=== PATIENT | male | born 1940 | race Caucasian/White ===

== ENCOUNTER 2022-07-07 15:50 | Inpatient (IN) | payer BC, OTHER ==
[~2022-07-07] VITALS: Ht 177.8 cm; Wt 93.4 kg
[~2022-07-07 15:50] MED LIST: ATEN-167 PO; LOVA20TA2 PO; RANI150T8 PO; TERA10CA PO
[2022-07-07 16:00] VITALS: BP_SYST 78
--- NOTE | 2022-07-07 17:00 | NUR ---
Placed in room 03 . Placed on awning spreader, blood pressure machine and pulse oximeter. To gown for exam. Side rails up.
--- NOTE | 2022-07-07 17:05 | NUR ---
PATIENT BROUGHT IN COMPLAINING OF DIARRHEA X 1 DAY. PATIENT REPORT THAT HE HAD 4 EPISODES OF BLOODY DIARRHEA WITH MILD DIZZINESS. LOWER ABDOMINAL CRAMPING NON RADIATING.
--- NOTE | 2022-07-07 17:08 | NUR ---
ER at bedside examining patient.
--- NOTE | 2022-07-07 17:13 | NUR ---
# 20 gauge angiocath placed to RAC. Use of asceptic technique. Opsite placed over site. Blood return noted. Blood for lab drawn from site. Flushed with 10 cc of normal saline. No evidence of infiltration noted. Patient tolerated well.
[2022-07-07 17:34] LABS: BASOPHILS % (AUTO) 0.2 % (0.0-2.0); EOSINOPHILS % (AUTO) 0.2 % (0.0-4.0); HEMATOCRIT 43.2 % (36-54); HEMOGLOBIN 14.9 g/dL (14.0-18.0); LYMPHOCYTES # (AUTO) 0.4 K/uL (1.0-5.5); LYMPHOCYTES % (AUTO) 3.9 % (20.5-51.5); MEAN CORPUSCULAR HEMOGLOBIN 32 pg (27-31); MEAN CORPUSCULAR HGB CONC 35 % (32-36); MEAN CORPUSCULAR VOLUME 93 fL (79.0-98.0); MONOCYTES # (AUTO) 0.4 K/uL (0.0-1.0); MONOCYTES % (AUTO) 3.9 % (1.7-9.3); NEUTROPHILS # (AUTO) 10.5 K/uL (1.8-7.7); NEUTROPHILS % (AUTO) 91.8 % (40.0-70.0); PLATELET COUNT (AUTO) 224 K/uL (130-430); RED BLOOD CELL COUNT(AUTO) 4.64 MIL/uL (4.2-6.2); RED CELL DISTRIBUTION WIDTH 13.5 % (9.0-15.0); WHITE BLOOD COUNT (AUTO) 11.5 K/uL (4.8-10.8)
[2022-07-07 17:49] LABS: ALANINE AMINOTRANSFERASE 35 U/L (12-78); ALBUMIN 3.8 g/dL (3.4-4.8); ANION GAP 12 (5-15); ASPARTATE AMINOTRANSFERASE 23 U/L (10-37); CALCIUM 8.8 mg/dL (8.4-11.0); CHLORIDE 100 mmol/L (98-107); CREATININE 1.19 mg/dL (0.55-1.30); GLUCOSE 164 mg/dL (70-99); LIPASE 130 U/L (73-393); TOTAL BILIRUBIN 0.7 mg/dL (0.0-1.0); UREA NITROGEN, BLOOD 13 mg/dL (8-21)
[2022-07-07 18:03] LABS: PROTHROMBIN TIME 10.6 SECS (9.5-12.5)
--- NOTE | 2022-07-07 18:16 | NUR ---
ER Dr. GRADY at bedside examining patient.
[2022-07-07] MEDS ORDERED: NACL 0.9% 2,000 ML IV ONE (18:30)
[2022-07-07] MEDS ORDERED: cefTRIAXone 1 GM in D5W 50 ML IV ONE (18:30)
[2022-07-07] MEDS ORDERED: cefTRIAXone 1 GM VIAL ONE (18:40)
[2022-07-07] MEDS ORDERED: metroNIDAZOLE 500 mg/NS 100 ML IV ONE (19:15)
[2022-07-07] MEDS ORDERED: MORPHINE 4 MG INJ. 4 MG/ML VIAL IVP ONE (19:30)
[2022-07-07] MEDS ORDERED: SEMA1PEN3 (19:57)
[2022-07-07] MEDS ORDERED: ASPI-1155 PO (19:57)
[2022-07-07] MEDS ORDERED: FAMO-132 PO (19:57)
[2022-07-07] MEDS ORDERED: FINA5TAB3 PO (19:57)
[2022-07-07] MEDS ORDERED: PIOG15TA8 PO (19:57)
[2022-07-07] MEDS ORDERED: ASCO500T20 PO (19:57)
[2022-07-07] MEDS ORDERED: L.RH1CAP PO (19:57)
[2022-07-07] MEDS ORDERED: CYAN50009 PO (19:57)
[2022-07-07] MEDS ORDERED: LISI10TA29 PO (19:57)
[2022-07-07] MEDS ORDERED: GLIM4TAB PO (19:57)
[2022-07-07] MEDS ORDERED: VITD2000 PO (19:57)
--- NOTE | 2022-07-07 19:57 | NUR ---
Admit bed requested Patient will be admitted to care of . Admitted to TELE unit. Diagnosis COLITIS Inpatient (Yes or No) YES Observation (Yes or No) NO Orientation concerns or request close to nursing station (Yes or No) NO Covid Status PENDING On vent or bipap NO Isolation requirements NO Needs a sitter NO From Home (Yes or if No enter name of facility) YES Requires Dialysis (Yes or No) NO Med Rec Completed (Yes of No) YES
--- NOTE | 2022-07-07 19:57 | NUR ---
Medication reconciliation completed with information provided by family member at the bedside. Any prior medication reconciliation on file was reviewed and corrected.
--- NOTE | 2022-07-07 20:31 | NUR ---
Patient resting quietly. No acute distress noted. Vital signs within normal range.
[2022-07-07] MEDS ORDERED: NS 100 ML IV ONE (21:00)
--- NOTE | 2022-07-07 21:03 | NUR ---
3RD LACTIC ORDERED DUE TO ELEVATED LACTIC ACID OF 2.9
--- NOTE | 2022-07-07 21:06 | NUR ---
MD MADE AWARE THAT PATIENT HAS NOT URINATED. NO NEW ORDERS AT THIS TIME.
[2022-07-07] MEDS ORDERED: FAMOTIDINE 20 MG TABLET PO ONE (21:15)
--- NOTE | 2022-07-07 21:21 | NUR ---
Transfer to TELEMETRY via ACLS protocol. Licensed nurse present. IV present no signs or symptoms of infiltration.
[2022-07-07 22:00] VITALS: BP_SYST 152
[2022-07-07 23:14] VITALS: BP_SYST 152
[2022-07-07] MEDS: D5/0.45 NS 1,000 ML IV SCH (23:48)
[2022-07-08] MEDS: PIPERACILLIN/TAZO 3.375 GM in NS 50 ML IV SCH ×4 (00:03→22:45)
[2022-07-08] MEDS ORDERED: ONDANSETRON HCL 4 MG/2 ML VIAL IVP PRN (00:30)
--- NOTE | 2022-07-08 00:30 | NUR ---
DR. BROWN Spoke with Dr. Brown regarding new admission. Informed him of patient's current report of cramping/upset stomach. Received order for Zofran PRN, Protonix daily first dose now, and for stool cultures.
[2022-07-08] MEDS: PANTOPRAZOLE SODIUM 40 MG/VIAL (PROTONIX) IVP SCH ×2 (00:46→22:45)
[2022-07-08 02:02] LABS: BILIRUBIN,URINE NEGATIVE (NEGATIVE); BLOOD, URINE 2+ (NEGATIVE); CLARITY/URINE SL CLOUDY (CLEAR); COLOR,URINE YELLOW (YELLOW); GLUCOSE,URINE NEGATIVE (NEGATIVE); KETONES,URINE 1+ (NEGATIVE); LEUKOCYTE ESTERASE ,URINE 1+ (NEGATIVE); NITRITE, URINE NEGATIVE (NEGATIVE); PH,URINE 5.5 (5.0-8.0); PROTEIN URINE NEGATIVE (NEGATIVE); UROBILINOGEN,URINE 0.2 (0.2-1.0)
[2022-07-08 02:05] LABS: WBC,URINE 50-80 /HPF (0-3)
[2022-07-08 02:06] LABS: BACTERIA,URINE FEW /HPF (None Seen); MUCUS,URINE 2+ /LPF (None Seen)
--- NOTE | 2022-07-08 02:31 | NUR ---
ADMISSION NOTE Received patient from ER via stretcher. Patient admitted with diagnosis of left side colitis . Patient is awake, alert, oriented X 4. Patient oriented to hospital room, call light, toileting, pain management and safety-teach back done. Personal belongings checked and Belongings List documented. Call light within reach.
[2022-07-08] MEDS: D5/0.45 NS 1,000 ML IV SCH ×2 (05:45→11:15)
--- NOTE | 2022-07-08 06:48 | NUR ---
CLOSING NOTES PATIENT IS IN BED. AXO 4 WITH SOME ABDOMINAL CRAMPING. NO S/S OR DISTRESS OR PAIN. SAFETY CHECKS ARE DONE AND CALL LIGHT WITH IN REACH.
--- NOTE | 2022-07-08 07:30 | NUR ---
Patient stated he had 4-5 episodes of diarrhea at home but has not had a bowel movement since he arrived at the hospital. Stool sample still needs to be collected. Patient also stated he has an advance directive at home and wants to be DNR, and that his can bring a copy of his advance directive. Care endorsed to oncoming nurse.
[2022-07-08 08:00] VITALS: BP_SYST 147
--- NOTE | 2022-07-08 08:00 | NUR ---
Start of shift. Pt coming out of restroom, just had bloody stool, specimen collected and sent to lab. Pt ambulates in room with steady to restroom. IV in RAC intact and patent infusing IVF's well. Tele unit attached and intact. No SOB/resp distress or chest pain/discomfort noted at this time. Call light within reach.
--- NOTE | 2022-07-08 09:40 | NUR ---
Note Dr June on the floor to assess pt and check labs/tests. MD informed that pt's medications need to be reconciled.
[2022-07-08 12:00] VITALS: BP_SYST 155
[2022-07-08] MEDS: metroNIDAZOLE 500 mg/NS 100 ML IV SCH ×2 (14:27→23:29)
[2022-07-08 16:00] VITALS: BP_SYST 153
--- NOTE | 2022-07-08 18:55 | NUR ---
END OF SHIFT Pt resting in bed. Pt does not like his Clear liquids diet. Pt encouraged to drink the Ensure and may be juice/chicken broth. Pt states to leave dinner tray at bedside table and he will try and eat/drink something. IV in RAC intact and patent infusing IVF's well. Bed in low position and bed alarm on. Side rails raised. Pt maintained with safety precautions all shift. Call light within reach. No more bloody bowel movements noted on shift. (Only bowel movement at 08am). Tele unit attached and intact all shift.
--- NOTE | 2022-07-08 19:45 | NUR ---
LAB CALLED FOR POSITIVE C DIFF IN STOOL. ISOLATION PRECAUTIONS ARE IN PLACE. PAGED DR. BROWN.
[2022-07-08 20:20] VITALS: BP_SYST 149
--- NOTE | 2022-07-08 20:20 | NUR ---
INFORMED DR. BROWN OF POSITIVE C DIFF. ORDERS RECEIVED.
[2022-07-08] MEDS: VANCOMYCIN HCL ORAL SOLUTION 125 MG/5 ML, 150 ML PO SCH (22:37)
--- NOTE | 2022-07-08 23:34 | NUR ---
CONSULTATION PAGED/CALLED Reason for Consultation: C DIFF Person Who was Notified: DEVIN Consulting Physician: AMPARO RÍOS MD Auto Seat Cover Installer Specialty: GI Ordering Physician: JULIO BROWN MD
[2022-07-09 00:11] VITALS: BP_SYST 158
[2022-07-09] MEDS: D5/0.45 NS 1,000 ML IV SCH ×3 (00:54→21:04)
[2022-07-09] MEDS: PIPERACILLIN/TAZO 3.375 GM in NS 50 ML IV SCH ×3 (05:53→21:07)
[2022-07-09] MEDS: metroNIDAZOLE 500 mg/NS 100 ML IV SCH (06:29)
[2022-07-09 06:34] LABS: ANION GAP 7 (5-15); CALCIUM 8.2 mg/dL (8.4-11.0); CHLORIDE 104 mmol/L (98-107); CREATININE 0.83 mg/dL (0.55-1.30); GLUCOSE 174 mg/dL (70-99); UREA NITROGEN, BLOOD 4 mg/dL (8-21)
--- NOTE | 2022-07-09 06:49 | NUR ---
Patient is lying in bed. AXO 4. Fluids running. Last BM was 07/08/2022 AM. No s/s or distress or pain at this time. All needs were met. Safety checks done and call light with in reach.
[2022-07-09 07:07] LABS: BASOPHILS % (AUTO) 0.4 % (0.0-2.0); EOSINOPHILS # (AUTO) 0.2 K/uL (0.0-0.4); EOSINOPHILS % (AUTO) 3.3 % (0.0-4.0); HEMATOCRIT 37.7 % (36-54); HEMOGLOBIN 12.9 g/dL (14.0-18.0); LYMPHOCYTES # (AUTO) 0.7 K/uL (1.0-5.5); LYMPHOCYTES % (AUTO) 9.7 % (20.5-51.5); MEAN CORPUSCULAR HEMOGLOBIN 32 pg (27-31); MEAN CORPUSCULAR HGB CONC 34 % (32-36); MEAN CORPUSCULAR VOLUME 94 fL (79.0-98.0); MONOCYTES # (AUTO) 0.5 K/uL (0.0-1.0); MONOCYTES % (AUTO) 6.8 % (1.7-9.3); NEUTROPHILS # (AUTO) 5.4 K/uL (1.8-7.7); NEUTROPHILS % (AUTO) 79.8 % (40.0-70.0); PLATELET COUNT (AUTO) 190 K/uL (130-430); RED BLOOD CELL COUNT(AUTO) 4.03 MIL/uL (4.2-6.2); RED CELL DISTRIBUTION WIDTH 13.3 % (9.0-15.0); WHITE BLOOD COUNT (AUTO) 6.7 K/uL (4.8-10.8)
[2022-07-09 08:05] VITALS: BP_SYST 155
[2022-07-09] MEDS: VANCOMYCIN HCL ORAL SOLUTION 125 MG/5 ML, 150 ML PO SCH ×4 (10:14→21:00)
[2022-07-09 14:05] VITALS: BP_SYST 142
--- NOTE | 2022-07-09 15:00 | NUR ---
Received report to take over assignment from DENG Mendes. Greeted Patient & explained change in assignment for remainder of shift. Patient resting comfortably in bed, no c/o pain. No s/s of acute distress noted. Patient in isolation precautions for C-diff & had some questions regarding isolation & reasons for such. Answered Patient questions & provided educations regarding C-diff spores & how this differs from other types of pathogens, highlighting importance of handwashing & bleach for shoes. Also provided information on importance of always completing courses of antibiotics as ordered, even if symptoms have resolved. Patient was thankful for the information.
[2022-07-09 16:00] VITALS: BP_SYST 136
[2022-07-09] MEDS: GLIMEPIRIDE 2 MG TABLET PO SCH (17:12)
--- NOTE | 2022-07-09 17:30 | NUR ---
Administered 1700 meds, as ordered. Patient tolerated well. Patient is curious why he is not taking his home medications while in the hospital. Nurse suggested he can discuss this and any other concerns he may have with his doctor during rounding in the morning. Patient denies pain. Bed in low, locked position. Call light & personal items within reach.
[2022-07-09 20:12] VITALS: BP_SYST 150
[2022-07-09] MEDS: FAMOTIDINE 20 MG TABLET PO SCH (20:59)
[2022-07-09] MEDS: PANTOPRAZOLE SODIUM 40 MG/VIAL (PROTONIX) IVP SCH (20:59)
--- NOTE | 2022-07-09 23:20 | NUR ---
pt resting in bed, no distress noted at this time
[2022-07-10 00:12] VITALS: BP_SYST 168
[2022-07-10 05:50] VITALS: BP_SYST 164
[2022-07-10] MEDS: PIPERACILLIN/TAZO 3.375 GM in NS 50 ML IV SCH ×3 (05:56→20:56)
[2022-07-10] MEDS: GLIMEPIRIDE 2 MG TABLET PO SCH ×2 (06:48→18:36)
[2022-07-10] MEDS: LISINOPRIL 10 MG TABLET (PRINIVIL) PO SCH (06:49)
--- NOTE | 2022-07-10 07:30 | NUR ---
rn opening note Report was endorsed by night nurse. patient is awake and alert laying in bed. no signs of any distress, breathing is equal and non labored. patient has all safety precautions in place. educated to use call light for assistance. call light is with him.
[2022-07-10 08:03] VITALS: BP_SYST 156
[2022-07-10] MEDS: ASPIRIN 81 MG TAB.CHEW PO SCH (09:00)
[2022-07-10] MEDS: ATENOLOL 50 MG TABLET (TENORMIN) PO SCH (09:19)
[2022-07-10] MEDS: CHOLECALCIFEROL (VITAMIN D3) 2,000 UNIT TABLET PO SCH (09:19)
[2022-07-10] MEDS: FINASTERIDE 5 MG TABLET (PROSCAR) PO SCH (09:20)
[2022-07-10] MEDS: TERAZOSIN HCL 5 MG CAPSULE (HYTRIN) PO SCH (09:21)
[2022-07-10] MEDS: ASCORBIC ACID 500 MG TABLET PO SCH (09:22)
[2022-07-10] MEDS: FAMOTIDINE 20 MG TABLET PO SCH ×2 (09:23→20:56)
[2022-07-10] MEDS: ATORVASTATIN 10 MG TABLET PO SCH (09:23)
[2022-07-10] MEDS: PIOGLITAZONE HCL 15 MG TABLET PO SCH (09:24)
[2022-07-10] MEDS: VANCOMYCIN HCL ORAL SOLUTION 125 MG/5 ML, 150 ML PO SCH ×4 (09:32→20:56)
--- NOTE | 2022-07-10 09:37 | NUR ---
medication patients scheduled medication given per order. Addendum: 07/11/22 at 0716 by Jenny Coyne RN patient is awake and alert no signs of any distress, breathing is equal and non labored. educated to use call light for assistance , call light is with . Patient states he is having loose bowel movements with no blood but has a form of mash potatoes. no other needs at this time.
[2022-07-10 11:32] VITALS: BP_SYST 135
--- NOTE | 2022-07-10 12:34 | NUR ---
CONSULTATION: REASON FOR CONSULT: C-DIFF CONSULTING PHYSICIAN: Aron AUGUSTIN ORDERED BY: KEVIN SPOKE WITH BHARGAVI FROM EXCHANGE [phone]
--- NOTE | 2022-07-10 15:03 | NUR ---
medication patients scheduled medication given per order.patient is awake and alert sitting in bed.No other needs at this time.educated to use call light for assistance. call light is with him.
[2022-07-10 17:01] VITALS: BP_SYST 136
--- NOTE | 2022-07-10 18:38 | NUR ---
medication /rn closing note patient scheduled medication given per order.patient is awake and alert no signs of any distress. breathing is equal and non labored.patient educated to use call light for assistance call light is with him. patient has no other needs at this time.
[2022-07-10 19:55] VITALS: BP_SYST 150
--- NOTE | 2022-07-10 19:55 | NUR ---
PM ASSESSMENT; -Patient is awake, alert, oriented X4 . Patient oriented to hospital room, call light, toileting, pain management and safety-teach back done. Maintains c-diff isolation in place. Pt denies any chest pain,pain,sob,or any acute distress. Discussed poc, all safety measures, pt verbalized understanding. Fall precaution in place. Side rails x2. Call light within reach. Cont to monitor pt.
[2022-07-10] MEDS: PANTOPRAZOLE SODIUM 40 MG/VIAL (PROTONIX) IVP SCH (20:56)
--- NOTE | 2022-07-11 00:11 | NUR ---
ROUNDS; -Pt is resting in bed comfortably. No s/s any acute distress noted. Maintains contact isolation. All side rails padded. Side rails x2. Call light within reach. Cont to monitor p
[2022-07-11 00:34] VITALS: BP_SYST 143
--- NOTE | 2022-07-11 04:40 | NUR ---
ROUNDS; -Pt is asleep. No s/s any acute distress noted. Maintains contact isolation. Side rails x2. Call light within reach. Cont to monitor p
[2022-07-11] MEDS: PIPERACILLIN/TAZO 3.375 GM in NS 50 ML IV SCH (05:40)
[2022-07-11] MEDS: GLIMEPIRIDE 2 MG TABLET PO SCH (06:22)
--- NOTE | 2022-07-11 06:46 | NUR ---
CLOSING NOTES; -Pt is resting in bed comfortably. Pt stated,"I had one time bowel movt and looked like oatmeal." Pt denies any pain,sob,or any acute distress. All safety measures in place. Call light w/in reach. Pt's condition stable. Will endorse to next nurse to cont care.
[2022-07-11] MEDS: ASPIRIN 81 MG TAB.CHEW PO SCH (09:00)
[2022-07-11 09:35] LABS: ANION GAP 7 (5-15); CALCIUM 8.7 mg/dL (8.4-11.0); CHLORIDE 104 mmol/L (98-107); CREATININE 1.03 mg/dL (0.55-1.30); GLUCOSE 165 mg/dL (70-99); UREA NITROGEN, BLOOD 8 mg/dL (8-21)
[2022-07-11 09:41] VITALS: BP_SYST 158
[2022-07-11 09:44] LABS: BASOPHILS % (AUTO) 0.3 % (0.0-2.0); EOSINOPHILS # (AUTO) 0.2 K/uL (0.0-0.4); HEMATOCRIT 38.4 % (36-54); HEMOGLOBIN 13.2 g/dL (14.0-18.0); LYMPHOCYTES # (AUTO) 0.7 K/uL (1.0-5.5); LYMPHOCYTES % (AUTO) 11.2 % (20.5-51.5); MEAN CORPUSCULAR HEMOGLOBIN 32 pg (27-31); MEAN CORPUSCULAR HGB CONC 34 % (32-36); MEAN CORPUSCULAR VOLUME 94 fL (79.0-98.0); MONOCYTES # (AUTO) 0.4 K/uL (0.0-1.0); MONOCYTES % (AUTO) 6.6 % (1.7-9.3); NEUTROPHILS # (AUTO) 4.5 K/uL (1.8-7.7); NEUTROPHILS % (AUTO) 77.9 % (40.0-70.0); PLATELET COUNT (AUTO) 197 K/uL (130-430); RED CELL DISTRIBUTION WIDTH 13.4 % (9.0-15.0); WHITE BLOOD COUNT (AUTO) 5.8 K/uL (4.8-10.8)
[2022-07-11 09:49] VITALS: BP_SYST 158
[2022-07-11] MEDS: TERAZOSIN HCL 5 MG CAPSULE (HYTRIN) PO SCH (09:50)
[2022-07-11] MEDS: ASCORBIC ACID 500 MG TABLET PO SCH (09:51)
[2022-07-11] MEDS: FAMOTIDINE 20 MG TABLET PO SCH (09:51)
[2022-07-11] MEDS: CHOLECALCIFEROL (VITAMIN D3) 2,000 UNIT TABLET PO SCH (09:54)
[2022-07-11] MEDS: ATENOLOL 50 MG TABLET (TENORMIN) PO SCH (09:56)
[2022-07-11] MEDS: ATORVASTATIN 10 MG TABLET PO SCH (09:57)
[2022-07-11] MEDS: LISINOPRIL 10 MG TABLET (PRINIVIL) PO SCH (09:57)
[2022-07-11] MEDS: FINASTERIDE 5 MG TABLET (PROSCAR) PO SCH (09:57)
[2022-07-11] MEDS: PIOGLITAZONE HCL 15 MG TABLET PO SCH (09:57)
[2022-07-11] MEDS: VANCOMYCIN HCL ORAL SOLUTION 125 MG/5 ML, 150 ML PO SCH (10:06)
[2022-07-11] MEDS ORDERED: LACTOBACILLUS RHAMNOSUS GG 1 CAP CAPSULE PO ONE (10:15)
[2022-07-11] MEDS ORDERED: VANC25SO PO (10:36)
[2022-07-11] MEDS ORDERED: LACT1CAP62 PO (10:36)
[2022-07-11 11:48] VITALS: BP_SYST 144
[2022-07-11 11:57] VITALS: BP_SYST 114
--- NOTE | 2022-07-11 13:10 | NUR ---
Patient discharge from [facility] with by private auto. Patient AOx4, vital signs within normal limits, ambulatory and steady. Discharge home with PO antibiotics. No complaints of pain. IV removed from RFA, 20G canula intact, patient tolerated well. Patient given discharge instructions and patient education regarding antibiotics and colitis, discharge plan and belongings. Patient wheeled to car by YASIR Savage.
[2022-07-11] MEDS ORDERED: LACTOBACILLUS RHAMNOSUS GG 1 CAP CAPSULE PO SCH (21:00)
--- NOTE | 2022-07-23 13:55 | NUR ---
Senior Scientist [employer] made a Post Discharge Follow Up Phone Call to former pt. Martínez who stated he had a visit with Dr. Saleh and will call Dr. Knox for a Colonoscopy. He spoke about this order today with his apt. with Dr. Saleh. Mauricio did not have any questions or concerns.
== END 2022-07-11 13:10 | disposition home or self-care (01) | DRG 372 ==
LOC: SED 15:50 → STU 19:44 → SMU 07-10 17:10
PROVIDERS: ADMIT Specialist; ATTEND Specialist
DX: A04.72 Enterocolitis due to Clostridium difficile, not specified as recurrent (principal); N39.0 Urinary tract infection, site not specified; R65.10 Systemic inflammatory response syndrome (SIRS) of non-infectious origin without acute organ dysfunction; E78.5 Hyperlipidemia, unspecified; E11.9 Type 2 diabetes mellitus without complications; E66.01 Morbid (severe) obesity due to excess calories; N40.0 Benign prostatic hyperplasia without lower urinary tract symptoms; K76.0 Fatty (change of) liver, not elsewhere classified; I10 Essential (primary) hypertension; Z20.822 Contact with and (suspected) exposure to COVID-19; J44.9 Chronic obstructive pulmonary disease, unspecified; K57.30 Diverticulosis of large intestine without perforation or abscess without bleeding; K80.20 Calculus of gallbladder without cholecystitis without obstruction; Z88.2 Allergy status to sulfonamides; Z79.899 Other long term (current) drug therapy; Z68.29 Body mass index [BMI] 29.0-29.9, adult; Z79.82 Long term (current) use of aspirin
CPT/HCPCS: 36415; 71045; 76376; 80048; 80053; 81000; 83605; 83690; 84484; 85025; 85610-TC; 85730-TC; 86886; 86900; 86901; 87040; 87045-TC; 87046; 87086; 87177; 87230-TC; 89055; 93005; 96365; 96366; 96367; 99291; 99292; C9113; G0378; J0696; J2270; J2543; J3490